=== PATIENT | male | born 1985 | race Caucasian/White ===

== ENCOUNTER 2017-07-17 16:47 | Emergency (ER) | payer SELFPAY ==
[~2017-07-17] VITALS: Ht 180.3 cm; Wt 153.6 kg
[2017-07-17 16:48] VITALS: BP 149/84; PULSE 86; RESP 20; TEMP 98.2; O2SAT 100
[2017-07-17] MEDS ORDERED: MULTTAB67 PO (17:10)
[2017-07-17 17:56] LABS: BASOPHIL # 0.1 TH/MM3 (0-0.2); BASOPHIL % 0.9 % (0.0-2.0); EOSINOPHIL # 0.2 TH/MM3 (0-0.4); EOSINOPHIL % 2.9 % (0.0-4.0); HEMATOCRIT 47.6 % (39.0-51.0); HEMO FLAGS DIFF FINAL; LYMPHOCYTE # 1.7 TH/MM3 (1.0-4.8); MEAN CELL VOLUME 86.5 FL (80.0-100.0); MEAN CORPUSCULAR HEMOGLOBIN 28.8 PG (27.0-34.0); MEAN CORPUSCULAR HGB CONC 33.3 % (32.0-36.0); MONO % 6.4 % (0.0-8.0); NEUT % 62.8 % (16.0-70.0); PLATELET COUNT 211 TH/MM3 (150-450); RED CELL DISTRIBUTION WIDTH 13.4 % (11.6-17.2); WHITE BLOOD COUNT 6.4 TH/MM3 (4.0-11.0)
--- NOTE | 2017-07-17 18:00 | RADRPT ---
EXAM DATE/TIME: 07/17/2017 17:13 [place] COMPARISON: No previous studies available for comparison. INDICATIONS : Testicular pain. MEDICAL HISTORY : None. SURGICAL HISTORY : None. ENCOUNTER: Initial ACUITY: 1 day PAIN SCORE: 6/10 LOCATION: Bilateral testicles. MEASUREMENTS: RIGHT TESTICLE: 4.5 x 4.1 x 2.4cm LEFT TESTICLE: 4.1 x 2.6 x 2.4cm FINDINGS: RIGHT TESTICLE: The right testicle is homogeneous with increased vascularity when compared to the left. Moderate hyd rocele is evident. LEFT TESTICLE: Homogeneous echotexture without intra or extratesticular mass. Blood flow is symmetric and within no rmal limits. No hydrocele or varicocele. Epididymis is within normal limits. SCROTUM: Within normal limits. CONCLUSION: Right hydrocele, probable orchitis. I don't see torsion.. Norman Price MD FACR on July 17, 2017 at 17:58 Board Certified Radiologist. This report was verified electronically.
--- NOTE | 2017-07-17 18:05 | PD ---
HPI Chief Complaint: Complaint Time Seen by Provider: 18:06 Travel History International Travel<30 days: No Contact w/Intl Traveler<30days: No Traveled to known affect area: No History of Present Illness HPI Patient is a 32-year-old male who presents to emergency room with complaints of right-sided testicular pain. Patient reports that pain began around 2:30 PM this afternoon, reports that pain has been intermittent in nature, when he has these pains to his right testicle, pain last for 2-3 minutes and then resolves on its own. Patient reports that he had similar symptoms 2-3 months ago, reports that he never followed up with a urologist. Patient reports no trauma, denies any penile discharge. Denies any fever or chills, denies any abdominal pain, denies any nausea or vomiting, patient with no other complaints at this time. PFSH Past Medical History Hypertension: Yes Past Surgical History Surgical History: No Previous Surgery Social History Alcohol Use: Yes (OCC) Tobacco Use: No Substance Use: No Allergies-Medications (Allergen,Severity, Reaction): Coded Allergies: No Known Allergies (Unverified , 07/17/17) Reported Meds & Prescriptions Reported Meds & Active Scripts Active Doxycycline Hyclate 100 Mg Cap 100 Mg PO BID 10 Days Reported Multiple Vitamin 1 Tab 1 Tab PO DAILY Review of Systems General / Constitutional: No: Fever Eyes: No: Visual changes HENT: No: Headaches Cardiovascular: No: Chest Pain or Discomfort Respiratory: No: Shortness of Breath Gastrointestinal: No: Abdominal Pain Genitourinary: Positive: Other (right-sided testicular pain), No: Urgency, Frequency, Dysuria, Discharge Musculoskeletal: No: Pain Skin: No Rash Neurologic: No: Weakness Psychiatric: No: Depression Endocrine: No: Polydipsia Hematologic/Lymphatic: No: Easy Bruising Physical Exam Narrative GENERAL: NAD SKIN: Focused skin assessment warm/dry. HEAD: Atraumatic. Normocephalic. EYES: Pupils equal and round. No scleral icterus. No injection or drainage. ENT: No nasal bleeding or discharge. Mucous membranes pink and moist. NECK: Trachea midline. No JVD. CARDIOVASCULAR: Regular rate and rhythm. No murmur appreciated. RESPIRATORY: No accessory muscle use. Clear to auscultation. Breath sounds equal bilaterally. GASTROINTESTINAL: Abdomen soft, non-tender, nondistended. Hepatic and splenic margins not palpable. : patient with good cremasteric reflex to left testicle, no cremasteric reflex to right testicle, exam performed with RN at bedside MUSCULOSKELETAL: No obvious deformities. No clubbing. No cyanosis. No edema. NEUROLOGICAL: Awake and alert. Normal speech. PSYCHIATRIC: Appropriate mood and affect; insight and judgment normal. Data Data Last Documented VS Vital Signs Date Time Temp Pulse Resp B/P (MAP) Pulse Ox O2 Delivery O2 Flow Rate FiO2 07/17/17 16:48 98.2 86 20 149/84 (105) 100 Room Air Orders Orders Us Testicles W Doppler (07/17/17 ) Complete Blood Count With Diff (07/17/17 17:11) Comprehensive Metabolic Panel (07/17/17 17:11) Urinalysis - C+S If Indicated (07/17/17 17:11) Gc And Chlamydia Pcr (07/17/17 18:06) Ceftriaxone Inj (Rocephin Inj) (07/17/17 18:15) Labs Laboratory Tests Test 07/17/17 17:34 07/17/17 17:40 White Blood Count 6.4 TH/MM3 Red Blood Count 5.50 MIL/MM3 Hemoglobin 15.8 GM/DL Hematocrit 47.6 % Mean Corpuscular Volume 86.5 FL Mean Corpuscular Hemoglobin 28.8 PG Mean Corpuscular Hemoglobin Concent 33.3 % Red Cell Distribution Width 13.4 % Platelet Count 211 TH/MM3 Mean Platelet Volume 8.4 FL Neutrophils (%) (Auto) 62.8 % Lymphocytes (%) (Auto) 27.0 % Monocytes (%) (Auto) 6.4 % Eosinophils (%) (Auto) 2.9 % Basophils (%) (Auto) 0.9 % Neutrophils # (Auto) 4.0 TH/MM3 Lymphocytes # (Auto) 1.7 TH/MM3 Monocytes # (Auto) 0.4 TH/MM3 Eosinophils # (Auto) 0.2 TH/MM3 Basophils # (Auto) 0.1 TH/MM3 CBC Comment DIFF FINAL Differential Comment Blood Urea Nitrogen 15 MG/DL Creatinine 0.99 MG/DL Random Glucose 77 MG/DL Total Protein 8.2 GM/DL Albumin 4.3 GM/DL Calcium Level 8.9 MG/DL Alkaline Phosphatase 75 U/L Aspartate Amino Transf (AST/SGOT) 32 U/L Alanine Aminotransferase (ALT/SGPT) 56 U/L Total Bilirubin 0.5 MG/DL Sodium Level 139 MEQ/L Potassium Level 3.7 MEQ/L Chloride Level 105 MEQ/L Carbon Dioxide Level 28.7 MEQ/L Anion Gap 5 MEQ/L Estimat Glomerular Filtration Rate 88 ML/MIN Urine Color YELLOW Urine Turbidity CLEAR Urine pH 6.0 Urine Specific [place] 1.027 Urine Protein NEG mg/dL Urine Glucose (UA) NEG mg/dL Urine Ketones NEG mg/dL Urine Occult Blood NEG Urine Nitrite NEG Urine Bilirubin NEG Urine Urobilinogen LESS THAN 2.0 MG/DL Urine Leukocyte Esterase NEG Urine RBC LESS THAN 1 /hpf Urine WBC LESS THAN 1 /hpf Urine Mucus FEW /lpf Microscopic Urinalysis Comment CULT NOT INDICATED MDM Medical Decision Making Medical Screen Exam Complete: Yes Emergency Medical Condition: Yes Medical Record Reviewed: Yes Interpretation(s) Vital Signs Date Time Temp Pulse Resp B/P (MAP) Pulse Ox O2 Delivery O2 Flow Rate FiO2 07/17/17 16:48 98.2 86 20 149/84 (105) 100 Room Air Differential Diagnosis Testicular torsion, intermittent testicular torsion, epididymitis Narrative Course During the course of the patients emergency department visit, the patients history, examination, and differential diagnosis were reviewed with the patient. The patient was placed on a ekg monitor tech with oximetry and frequent blood pressure monitoring. The patients laboratory studies were reviewed and remarkable for: CBC & BMP Diagram 07/17/17 17:34 Radiology studies were reviewed and remarkable for: Testicular ultrasound is positive for right-sided hydrocele with probable orchitis, no torsion is seen. Urine GC sent; plan to treat for orchitis with Rocephin and doxycycline. Discussed need for patient to follow up with urologist, he will also follow up with cultures from today. Signs and symptoms of when to return to the emergency room was reviewed patient in detail. CBC & BMP Diagram 07/17/17 17:34 Total Protein 8.2, Albumin 4.3, Calcium Level 8.9, Alkaline Phosphatase 75, Aspartate Amino Transf (AST/SGOT) 32, Alanine Aminotransferase (ALT/SGPT) 56, Total Bilirubin 0.5 Patient reevaluated, patient feeling much better this time, I reviewed all labs and all studies as well as all findings with patient. He will call for follow- up on results of GC cultures from today. He will follow-up with urology, if he has return of testicular pain, he will return to the emergency room for repeat ultrasound. Patient understands that if GC cultures are positive, all sexual partners will need to be treated. Diagnosis Primary Impression: Orchitis Additional Impression: Testicular pain, right Referrals: Praveen Dorsey MD Patient Instructions: General Instructions Departure Forms: Tests/Procedures, Work Release Enter return to work date: Jul 18, 2017 Additional Instructions: Please provide patient with a copy of their lab work and studies at discharge* * Please follow up with your primary care doctor in 2-3 days Return to the ER if symptoms worsen or progress Return to the ER as needed Please take all medications as prescribed Please follow-up with all cultures from today Please follow-up with urologist Med/Other Pt SpecificInfo: Prescription(s) given Scripts Doxycycline Hyclate (Doxycycline Hyclate) 100 Mg Cap 100 MG PO BID for Infection for 10 Days, #20 CAP 0 Refills Prov: Sujatha Sutherland DO 07/17/17 Disposition: 01 DISCHARGE HOME Condition: Stable Sujatha Sutherland DO Jul 17, 2017 18:05
[2017-07-17] MEDS ORDERED: DOXY100C PO (18:08)
[2017-07-17 18:10] LABS: ALT (GPT) 56 U/L (12-78); ANION GAP 5 MEQ/L (5-15); BICARBONATE 28.7 MEQ/L (21.0-32.0); BLOOD UREA NITROGEN 15 MG/DL (7-18); CHLORIDE 105 MEQ/L (98-107); GLOMERULAR FILTRATION RATE 88 ML/MIN (>89); POTASSIUM 3.7 MEQ/L (3.5-5.1); SODIUM (NA) 139 MEQ/L (136-145)
[2017-07-17 18:14] LABS: BLOOD, URINE NEG (NEG); COMMENT (UR) CULT NOT INDICATED; CULTURE IF INDICATED CULT NOT INDICATED; GLUCOSE,URINE NEG (NEG); KETONE, URINE NEG (NEG); MUCUS URINE FEW /lpf (OCC); NITRITE,URINE NEG (NEG); URINE COLOR YELLOW (YELLW/STRAW)
[2017-07-17] MEDS ORDERED: cefTRIAXone INJ 1,000 MG in SODIUM CHLORIDE 0.9% INJ 100 ML IV ONE (18:15)
[2017-07-17 18:21] LABS: ALKALINE PHOSPHATASE 75 U/L (45-117); AST (GOT) 32 U/L (15-37); TOTAL BILIRUBIN ADULT 0.5 MG/DL (0.2-1.0)
[2017-07-17 19:15] VITALS: BP 169/95; PULSE 67; RESP 18; O2SAT 100
[2017-07-17 22:32] LABS: CHLAMYDIA PCR NOT DETECTED (NOT DETECT); NEISSERIA PCR NOT DETECTED (NOT DETECT)
== END 2017-07-17 19:40 | disposition home or self-care (01) ==
LOC: NEPE 16:47
DX: N45.2 Orchitis (principal); N50.811 Right testicular pain; N43.3 Hydrocele, unspecified; I10 Essential (primary) hypertension; Z79.899 Other long term (current) drug therapy
CPT/HCPCS: 76870; 80053; 81001; 85025; 87491; 87591; 93975; 96360; 99285; J0696